=== PATIENT | male | born 1980 | race Caucasian/White ===

== ENCOUNTER 2017-02-04 04:30 | Emergency (ER) | payer SELFPAY ==
[2016-08-08 13:39] VITALS: BMI 15.3
[~2017-02-04 04:30] MED LIST: CARAFATE1 G PO; CARAFATE1 G/10 ML PO; COMBIVENT RESPIM4 GM INH; FLAGYL500 MG PO; LEVAQUIN500 MG PO; NEXIUM40 MG PO; NICODERM C1 PATCH .2 TRANSDERM; NODOLOR CAPSUL1 EACH; NORCO 7.5/325 T1 TA1 PO; PROTONIX20 MG PO; PROTONIX40 MG PO
== END 2017-02-04 06:33 | disposition home or self-care (01) ==
LOC: D.ER 04:30
DX: S00.83XA Contusion of other part of head, initial encounter (principal); Y04.2XXA Assault by strike against or bumped into by another person, initial encounter; Y93.89 Activity, other specified; Y92.89 Other specified places as the place of occurrence of the external cause; H11.32 Conjunctival hemorrhage, left eye; M54.9 Dorsalgia, unspecified; F17.200 Nicotine dependence, unspecified, uncomplicated

== ENCOUNTER 2018-10-26 10:09 | Inpatient (IN) | payer MEDICAID ==
[~2018-10-26] VITALS: Ht 177.8 cm; Wt 56.7 kg
[2018-10-26 11:15] LABS: BASOPHILS 0.2 % (0-2); EOSINOPHILS 0.9 % (0-7); HEMATOCRIT 46.3 % (42.0-54.0); HEMOGLOBIN 16.3 g/dL (13.5-17.5); IMMATURE GRANULOCYTES 0.2 % (0-5); MCH 31.6 pg (26.0-34.0); MCHC 35.2 g/dL (31.0-37.0); MCV 89.7 fL (80.0-100.0); MEAN PLATELET VOLUME 9.8 fL (7.4-10.4); MONOCYTES 7.3 % (2-11); NEUTROPHILS 78.4 % (40-80); RBC 5.16 10x6/uL (4.20-6.10); RDW 13.1 % (11.5-14.5); WBC 16.1 10x3/uL (4.8-10.8)
[2018-10-26 11:16] LABS: PLATELET COUNT 196 10x3/uL (130-400)
[2018-10-26 11:22] LABS: APTT 29.7 SECONDS (22.8-39.4); INR 1.08 (0.85-1.17); PROTIME 13.5 SECONDS (11.6-15.0)
[2018-10-26 11:30] LABS: ALKALINE PHOSPHATASE 72 U/L (46-116); ALT (SGPT) 29 U/L (10-68); BILIRUBIN - TOTAL 0.83 mg/dL (0.2-1.3); CALC OSMOLALITY 282 mosm/kg (275-300); CALCIUM 9.1 mg/dL (8.5-10.1); CARBON DIOXIDE 27.9 mmol/L (21.0-32.0); CHLORIDE - SERUM 104 mmol/L (98-107); CREATININE - SERUM 0.9 mg/dL (0.6-1.3); GLUCOSE 114 mg/dL (74-106); PROTEIN - SERUM 7.3 g/dL (6.4-8.2); SODIUM 140 mmol/L (136-145); UREA NITROGEN 20 mg/dL (7-18); eGFR NON AFRICAN AMERICAN > 90 mL/min (90-120)
[2018-10-26 11:43] LABS: CKMB 0.1 U/L (0.0-3.6); CREATINE KINASE 44 UL (21-232); MAGNESIUM - SERUM 2.4 mg/dL (1.8-2.4)
[2018-10-26 11:44] LABS: TROPONIN-I < 0.017 ng/mL (0.000-0.060)
[2018-10-26] MEDS ORDERED: ACETAMINOPHEN500 M1 PO (12:20)
[2018-10-26] MEDS ORDERED: CYCLOBENZAPRINE10 MG PO (12:20)
[2018-10-26] MEDS ORDERED: IBUPROFEN800 MG PO (12:20)
[2018-10-26 12:41] VITALS: BP 108/68
[2018-10-26 12:54] LABS: AMYLASE - SERUM 53 U/L (25-115); LIPASE 433 U/L (73-393)
--- NOTE | 2018-10-26 16:50 | NUR ---
PT TRANSPORTED TO ROOM VIA WHEELCHAIR FROM ER. IV INFUSING TO LEFT AC. PT AMBULATED FROM WHEELCHAIR TO BED. PT EDUCATED ON FALL PREVENTION AND ORDER FOR BED REST. PT VERBALIZED UNDERSTANDING. PT DENIES PRESENCE OF PAIN AND OR N/V AT THIS TIME. BED IS IN THE LOWEST POSITION. CALL LIGHT AND BEDSIDE TABLE ARE WITHIN REACH. WILL CONT TO MONITOR.
[2018-10-26 17:34] VITALS: BP 97/61; BMI 17.9
[2018-10-26 18:20] VITALS: BP 97/61
--- NOTE | 2018-10-26 18:43 | NUR ---
PT EDUCATED ON IMPORTANCE OF SCDS AND PURPOSE OF SCDS. PT REFUSES SCDS AT THIS TIME.
--- NOTE | 2018-10-26 19:15 | NUR ---
RECEIVED CARE FROM DAY NURSE. LYING IN BED WATCHING TV. REPORTS NO NEEDS AT THIS TIME. CALL LIGHT AT SIDE. IV INFUSING PER ORDER TO LEFT AC.
[2018-10-26 19:50] VITALS: BP 98/62
--- NOTE | 2018-10-26 23:50 | NUR ---
PT REPORTS HE TOLD SOMEONE TWO HOURS PRIOR THAT HE HAD AN EPISODE OF PAIN IN HIS CHEST THAT WENT UP HIS RIGHT NECK AND UP TO THE RIGHT SIDE OF HIS HEAD. REPORTS HIS HEAD STILL HURTS. CALLED TELEMETRY TO SEE IF THEY NOW HAVE BOX'S, NONE AVAILABLE AT THIS TIME. EKG DONE AT THIS TIME. MORPHINE GIVEN PER ORDER. VITALS REMAIN UNCHANGED. WILL CONTINUE TO MONITOR. CALL LIGHT AT SIDE. INSTRUCTED PATIENT TO CALL BACK IF A NURSE DOESN'T COME IN THE ROOM IF HE ASKED FOR ONE, NOT TO WAIT 2 HOURS.
--- NOTE | 2018-10-27 02:31 | NUR ---
I AGREE WITH ARBORICULTURIST'S ASSESSMENT.
[2018-10-27 04:00] VITALS: BP 90/52
[2018-10-27 06:03] LABS: BASOPHILS 0 % (0-2); EOSINOPHILS 0 % (0-7); HEMATOCRIT 39.1 % (42.0-54.0); HEMOGLOBIN 13.4 g/dL (13.5-17.5); IMMATURE GRANULOCYTES 0.3 % (0-5); LYMPHOCYTES 16.1 % (15-50); MCH 31.2 pg (26.0-34.0); MCHC 34.3 g/dL (31.0-37.0); MCV 91.1 fL (80.0-100.0); MEAN PLATELET VOLUME 10.4 fL (7.4-10.4); MONOCYTES 5.9 % (2-11); NEUTROPHILS 77.7 % (40-80); PLATELET COUNT 194 10x3/uL (130-400); RBC 4.29 10x6/uL (4.20-6.10); RDW 13.1 % (11.5-14.5)
[2018-10-27 06:13] LABS: WBC 10.2 10x3/uL (4.8-10.8)
[2018-10-27 06:25] LABS: ALKALINE PHOSPHATASE 57 U/L (46-116); ALT (SGPT) 22 U/L (10-68); BILIRUBIN - TOTAL 0.59 mg/dL (0.2-1.3); CALCIUM 8.1 mg/dL (8.5-10.1); CARBON DIOXIDE 24.2 mmol/L (21.0-32.0); CHLORIDE - SERUM 106 mmol/L (98-107); CREATININE - SERUM 0.9 mg/dL (0.6-1.3); GLUCOSE 103 mg/dL (74-106); LIPASE 97 U/L (73-393); MAGNESIUM - SERUM 2.1 mg/dL (1.8-2.4); POTASSIUM - SERUM 4.5 mmol/L (3.5-5.1); PROTEIN - SERUM 5.6 g/dL (6.4-8.2); SODIUM 139 mmol/L (136-145); eGFR NON AFRICAN AMERICAN > 90 mL/min (90-120)
[2018-10-27 06:27] LABS: ALBUMIN 2.9 g/dL (3.4-5.0); AMYLASE - SERUM 23 U/L (25-115); CALC OSMOLALITY 282 mosm/kg (275-300); UREA NITROGEN 27 mg/dL (7-18)
--- NOTE | 2018-10-27 08:10 | NUR ---
PT C/O PAIN IN ABDOMIN RADIATING TO BACK STATES SAME PAIN WHAT HE CAME IN WITH YESTRDAY, STARTS OUT BURNING FEELING IN STOMACH THAN TURNED INTO PAIN. ADMINISTER PRN PAIN MEDICATION WELL NAUSEA MEDICATION
[2018-10-27 09:41] VITALS: BP 96/53
--- NOTE | 2018-10-27 11:00 | NUR ---
RN NOTE: PT LYING IN BED, STATED PAIN IS STILL IN ABDOMEN BUT THINKS IT COULD BE HUNGRY PAINS, PT NURSE HAS SPOKEN WOTH DOCTOR, NO NEEDS VOICED AT THIS TIME, BED IN LOW POSITION, CL IN REACH AND ALL QUESTIONS ANSWERED
--- NOTE | 2018-10-27 11:08 | NUR ---
PT STATED STIL HAS SOME PAIN IN ABDOMEN BUT FEELS IF IT COULD BE HUNER PAINS AND IF HE EATS HE WOULD FEEL BETTER, ADVISED PT DR CRUZ NEEDS TO SEE HIM BEFORE ADVANCING DIET
--- NOTE | 2018-10-27 11:48 | NUR ---
PT STATES URINE IS VERY DARK AND LOOKS LIKE COULD BE BLOOD, GAVE PT URINAL AND PLACED ORDER FOR UA AND CULTURE
[2018-10-27 14:08] VITALS: BP 99/54
[2018-10-27 16:14] LABS: APPEARANCE CLEAR (CLEAR); BILIRUBIN NEGATIVE (NEGATIVE); COLOR YELLOW (YELLOW); GLUCOSE NEGATIVE (NEGATIVE); KETONE SMALL mg/dL (NEGATIVE); NITRITE NEGATIVE (NEGATIVE); PROTEIN NEGATIVE (NEGATIVE); SPECIFIC GRAVITY 1.015 (1.005-1.020); UROBILINOGEN NORMAL (NORMAL)
[2018-10-27 18:25] VITALS: BP 96/52
--- NOTE | 2018-10-27 19:15 | NUR ---
RECEIVED CARE FROM DAY NURSE. LYING IN BED WATCHING TV. REPORTS NO NEEDS AT THIS TIME. CALL LIGHT AT SIDE. IV INFUSING PER ORDER TO PATENT LEFT AC.
[2018-10-27 20:00] VITALS: BP 88/42
[2018-10-27 22:06] VITALS: BP 102/68
[2018-10-28] VITALS: BP 82/44
[2018-10-28 04:00] VITALS: BP 96/52
[2018-10-28 05:06] LABS: BASOPHILS 0.1 % (0-2); EOSINOPHILS 1.8 % (0-7); HEMATOCRIT 38.2 % (42.0-54.0); HEMOGLOBIN 13.1 g/dL (13.5-17.5); IMMATURE GRANULOCYTES 0.1 % (0-5); LYMPHOCYTES 36.8 % (15-50); MCH 31.6 pg (26.0-34.0); MCHC 34.3 g/dL (31.0-37.0); MEAN PLATELET VOLUME 9.8 fL (7.4-10.4); MONOCYTES 6.6 % (2-11); NEUTROPHILS 54.6 % (40-80); PLATELET COUNT 168 10x3/uL (130-400); RBC 4.15 10x6/uL (4.20-6.10); RDW 13.3 % (11.5-14.5); WBC 10.3 10x3/uL (4.8-10.8)
[2018-10-28 05:28] LABS: ALBUMIN 2.5 g/dL (3.4-5.0); ALKALINE PHOSPHATASE 46 U/L (46-116); ALT (SGPT) 18 U/L (10-68); AMYLASE - SERUM 24 U/L (25-115); BILIRUBIN - TOTAL 0.28 mg/dL (0.2-1.3); CALCIUM 7.9 mg/dL (8.5-10.1); CARBON DIOXIDE 26.1 mmol/L (21.0-32.0); CHLORIDE - SERUM 111 mmol/L (98-107); CREATININE - SERUM 0.9 mg/dL (0.6-1.3); GLUCOSE 92 mg/dL (74-106); LIPASE 126 U/L (73-393); POTASSIUM - SERUM 4.2 mmol/L (3.5-5.1); PROTEIN - SERUM 4.9 g/dL (6.4-8.2); SODIUM 144 mmol/L (136-145); eGFR NON AFRICAN AMERICAN > 90 mL/min (90-120)
[2018-10-28 05:29] LABS: CALC OSMOLALITY 287 mosm/kg (275-300); UREA NITROGEN 15 mg/dL (7-18)
[2018-10-28 08:23] VITALS: BP 105/68
[2018-10-28 12:16] VITALS: BP 101/59
[2018-10-28 12:27] VITALS: Ht 177.8 cm; Wt 56.7 kg
--- NOTE | 2018-10-28 13:46 | NUR ---
PATIENT IN BED WITH EYES CLOSED RESTING QUIETLY. IV INTACT. CALL LIGHT WITHIN REACH.
[2018-10-28 15:08] VITALS: BP 115/68
--- NOTE | 2018-10-28 20:00 | NUR ---
ASSESSMENT PER FLOWSHEET. IV PATENT LEFT AC OF LR AT 100CC'S/HR SITE CLEAR. RESTING QUIETLY SR UP X2 CALL LIGHT WITHIN REACH. DENIES NEEDS.
[2018-10-28 20:31] VITALS: BP 109/68
--- NOTE | 2018-10-28 22:00 | NUR ---
RESTING QUIETLY RESPIRATIONS WITH EASE AND UNLABORED. DENIES NEEDS. VOIDS WELL IN URINAL.
--- NOTE | 2018-10-29 | NUR ---
EYES CLOSED RESPIRATIONS WITH EASE AND UNLABORED.
[2018-10-29 00:47] VITALS: BP 94/62
--- NOTE | 2018-10-29 03:30 | NUR ---
EYES CLOSED RESPIRATIONS WITH EASE AND UNLABORED.
[2018-10-29 04:54] VITALS: BP 112/74
[2018-10-29 05:19] LABS: BASOPHILS 0.2 % (0-2); EOSINOPHILS 4.6 % (0-7); HEMATOCRIT 38.1 % (42.0-54.0); IMMATURE GRANULOCYTES 0.2 % (0-5); LYMPHOCYTES 32.2 % (15-50); MCH 31.4 pg (26.0-34.0); MCHC 34.1 g/dL (31.0-37.0); MEAN PLATELET VOLUME 9.8 fL (7.4-10.4); MONOCYTES 6.7 % (2-11); NEUTROPHILS 56.1 % (40-80); PLATELET COUNT 166 10x3/uL (130-400); RBC 4.14 10x6/uL (4.20-6.10); RDW 13.2 % (11.5-14.5); WBC 8.5 10x3/uL (4.8-10.8)
[2018-10-29 05:46] LABS: ALBUMIN 2.3 g/dL (3.4-5.0); ALKALINE PHOSPHATASE 48 U/L (46-116); AMYLASE - SERUM 25 U/L (25-115); BILIRUBIN - TOTAL 0.19 mg/dL (0.2-1.3); CALCIUM 7.6 mg/dL (8.5-10.1); CARBON DIOXIDE 29.2 mmol/L (21.0-32.0); CHLORIDE - SERUM 110 mmol/L (98-107); CREATININE - SERUM 0.9 mg/dL (0.6-1.3); GLUCOSE 98 mg/dL (74-106); LIPASE 147 U/L (73-393); MAGNESIUM - SERUM 1.6 mg/dL (1.8-2.4); POTASSIUM - SERUM 4.3 mmol/L (3.5-5.1); PROTEIN - SERUM 4.8 g/dL (6.4-8.2); SODIUM 145 mmol/L (136-145); eGFR NON AFRICAN AMERICAN > 90 mL/min (90-120)
[2018-10-29 05:59] LABS: CALC OSMOLALITY 286 mosm/kg (275-300); UREA NITROGEN 8 mg/dL (7-18)
[2018-10-29 06:00] LABS: ALT (SGPT) 29 U/L (10-68)
[2018-10-29 08:45] VITALS: BP 109/71
[2018-10-29] MEDS ORDERED: PROTONIX40 MG PO (10:37)
--- NOTE | 2018-10-29 11:14 | MORECARE ---
CASE MANAGEMENT DISCHARGE SUMMARY PATIENT: LETICIA JAUREGUI UNIT: [id number] ADM DATE: 10/26/18 AGE: 38 : 80 SEX: M ROOM/BED: D.2222 AUTHOR: HUDSON,DOC PHYSICIAN: REFERRING PHYSICIAN: JENELLE OLIVA MD DATE OF SERVICE: 10/29/18 Discharge Plan Patient Name: LETICIA JAUREGUI Facility: [facility]:[place] : 1980 Planned Disposition: Home Anticipated Discharge Date: 10/29/18 Discharge Date: Expected LOS: 3 Initial Reviewer: [email or web address] Initial Review Date: 10/29/2018 Generated: 10/29/18 12:14 pm Comments DCP- Discharge Planning Updated by [email or web address]: May Harrison on 10/29/18 10:[address] Patient Name: LETICIA JAUREGUI Admission Status: ER Accout number: [id number] Admission Date: 10-26-2018 : 1980 Admission Diagnosis:CHEST PAIN, UNSPECIFIED Attending: JENELLE MCCALL Current LOS: 3 Anticipated DC Date: 10-29-2018 Planned Disposition: Home Primary Insurance: MEDICAID [place] PENDING Discharge Planning Comments: CM met with patient to complete initial dc planning assessment. CM educated patient on the CM role and verbal consent given by patient to complete assessment. Patient lives alone. States he is independent with all ADL's and AIDL's. At discharge patient plans to return and feels this is a safe discharge. States his friend, Akin will take him home. CM discussed availability of home health and medical equipment. Patient denied known discharge needs at this time. No needs identified. CM will continue to follow and will assist as needed with dc plans/needs. Vertical Boring Mill Operator: May Harrison DCPIA - Discharge Planning Initial Assessment Updated by [email or web address]: May Harrison on 10/29/18 11:09 am * Is the patient Alert and Oriented? Yes * How many steps to enter\exit or inside your home? 3/0 * PCP None * Pharmacy [facility] on [address] * Preadmission Environment Home Alone * ADLs Independent * Equipment None * List name and contact numbers for known caregivers / representatives who currently or will assist patient after discharge: Akin nicholson - [phone] * Verbal permission to speak to the caregivers and representatives has been obtained from the patient. Yes * Community resources currently utilized None * Additional services required to return to the preadmission environment? No * Can the patient safely return to the preadmission environment? Yes * Has this patient been hospitalized within the prior 30 days at any hospital? No Patient Name: LETICIA JAUREGUI Page 37153 at 1114 All edits/amendments must be made on the electronic document DICTATION DATE: 10/29/18 111 INDUCTION MACHINE OPERATOR: MALLORIE 10/29/18 1114 RPT#: [id number] DC DATE: STATUS: ADM IN [facility] [address] [place] [address] END OF REPORT
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
--- NOTE | 2018-10-29 13:42 | NUR ---
SCHOOL BUS MECHANIC NOTES - TOLERATING DIET. EXPECTED DISCHARGE TODAY. PAIN UNDER CONTROL. BED LOW, CALL LIGHT IN REACH. NO OTHER NEEDS
--- NOTE | 2018-10-30 16:51 | MORECARE ---
CASE MANAGEMENT DISCHARGE SUMMARY PATIENT: LETICIA JAUREGUI UNIT: [id number] ADM DATE: 10/26/18 AGE: 38 : 80 SEX: M ROOM/BED: D.2222 AUTHOR: HUDSON,DOC PHYSICIAN: REFERRING PHYSICIAN: JENELLE OLIVA MD DATE OF SERVICE: 10/30/18 Discharge Plan Patient Name: LETICIA JAUREGUI Facility: [facility]:[place] : 1980 Planned Disposition: Home Anticipated Discharge Date: 10/29/18 Discharge Date: 10/29/2018 Expected LOS: 3 Initial Reviewer: [email or web address] Initial Review Date: 10/29/2018 Generated: 10/30/18 5:51 pm Comments DCP- Discharge Planning Updated by [email or web address]: May Harrison on 10/29/18 10:[address] Patient Name: LETICIA JAUREGUI Admission Status: ER Accout number: [id number] Admission Date: 10-26-2018 : 1980 Admission Diagnosis:CHEST PAIN, UNSPECIFIED Attending: JENELLE MCCALL Current LOS: 3 Anticipated DC Date: 10-29-2018 Planned Disposition: Home Primary Insurance: MEDICAID [place] PENDING Discharge Planning Comments: CM met with patient to complete initial dc planning assessment. CM educated patient on the CM role and verbal consent given by patient to complete assessment. Patient lives alone. States he is independent with all ADL's and AIDL's. At discharge patient plans to return and feels this is a safe discharge. States his friend, Akin will take him home. CM discussed availability of home health and medical equipment. Patient denied known discharge needs at this time. No needs identified. CM will continue to follow and will assist as needed with dc plans/needs. Chemical Laboratory Chief: May Harrison DCPIA - Discharge Planning Initial Assessment Updated by [email or web address]: May Harrison on 10/29/18 11:09 am * Is the patient Alert and Oriented? Yes * How many steps to enter\exit or inside your home? 3/0 * PCP None * Pharmacy [facility] on [address] * Preadmission Environment Home Alone * ADLs Independent * Equipment None * List name and contact numbers for known caregivers / representatives who currently or will assist patient after discharge: Akin nicholson - [phone] * Verbal permission to speak to the caregivers and representatives has been obtained from the patient. Yes * Community resources currently utilized None * Additional services required to return to the preadmission environment? No * Can the patient safely return to the preadmission environment? Yes * Has this patient been hospitalized within the prior 30 days at any hospital? No Last DP export: 10/29/18 10:14 a Patient Name: LETICIA JAUREGUI Page 53777 at 1651 All edits/amendments must be made on the electronic document DICTATION DATE: 10/30/181650 LOAN CONSULTANT: MALLORIE 10/30/181650 RPT#: [id number] DC DATE:10/29/18 STATUS: DIS IN [facility] [address] [place] [address] END OF REPORT
[2018-11-01 11:21] LABS: IGG SUBCLASS 1 267 mg/dL (248-810); IGG SUBCLASS 2 233 mg/dL (130-555); IGG SUBCLASS 3 23 mg/dL (15-102); IGG SUBCLASS 4 22 mg/dL (2-96)
== END 2018-10-29 16:04 | disposition home or self-care (01) | DRG 438 ==
LOC: D.ER 10:09 → D.MS 15:57 → D.EDHOLD 15:57 → D.MS 16:03
PROVIDERS: Family Medicine; Internal Medicine Gastroenterology; ADMIT Family Medicine Adult Medicine
DX: K85.90 Acute pancreatitis without necrosis or infection, unspecified (principal); E43 Unspecified severe protein-calorie malnutrition; F17.213 Nicotine dependence, cigarettes, with withdrawal; K86.1 Other chronic pancreatitis

== ENCOUNTER 2018-11-09 09:57 | Emergency (ER) | payer MEDICAID ==
[~2018-11-09] VITALS: Ht 177.8 cm; Wt 56.8 kg
[~2018-11-09 09:57] MED LIST changes: +ACETAMINOPHEN500 M1 PO; +CYCLOBENZAPRINE10 MG PO; +IBUPROFEN800 MG PO
[2018-11-09 10:01] VITALS: Ht 177.8 cm; Wt 56.8 kg
[2018-11-09 10:27] LABS: BASOPHILS 0.1 % (0-2); EOSINOPHILS 0.9 % (0-7); HEMATOCRIT 48.5 % (42.0-54.0); HEMOGLOBIN 17.3 g/dL (13.5-17.5); IMMATURE GRANULOCYTES 0.3 % (0-5); LYMPHOCYTES 10.4 % (15-50); MCH 31.8 pg (26.0-34.0); MCHC 35.7 g/dL (31.0-37.0); MCV 89.2 fL (80.0-100.0); MEAN PLATELET VOLUME 9.8 fL (7.4-10.4); MONOCYTES 7.8 % (2-11); NEUTROPHILS 80.5 % (40-80); PLATELET COUNT 260 10x3/uL (130-400); RBC 5.44 10x6/uL (4.20-6.10); RDW 13.2 % (11.5-14.5); WBC 17.4 10x3/uL (4.8-10.8)
[2018-11-09 10:29] LABS: APPEARANCE CLEAR (CLEAR); BILIRUBIN NEGATIVE (NEGATIVE); COLOR DY (YELLOW); GLUCOSE NEGATIVE (NEGATIVE); KETONE LARGE mg/dL (NEGATIVE); NITRITE NEGATIVE (NEGATIVE); PROTEIN NEGATIVE (NEGATIVE); SPECIFIC GRAVITY 1.025 (1.005-1.020); UROBILINOGEN NORMAL (NORMAL)
[2018-11-09 10:30] LABS: BACTERIA MODERATE /hpf (NONE SEEN); EPITHELIAL CELLS OCC /hpf (0-5)
[2018-11-09 10:31] LABS: MUCUS <1+ /lpf (NONE SEEN)
[2018-11-09 10:48] LABS: ALBUMIN 4.5 g/dL (3.4-5.0); ALKALINE PHOSPHATASE 78 U/L (46-116); ALT (SGPT) 58 U/L (10-68); BILIRUBIN - TOTAL 0.69 mg/dL (0.2-1.3); CALC OSMOLALITY 284 mosm/kg (275-300); CALCIUM 9.2 mg/dL (8.5-10.1); CARBON DIOXIDE 24.2 mmol/L (21.0-32.0); CHLORIDE - SERUM 101 mmol/L (98-107); CREATININE - SERUM 1.1 mg/dL (0.6-1.3); POTASSIUM - SERUM 3.8 mmol/L (3.5-5.1); SODIUM 139 mmol/L (136-145); UREA NITROGEN 23 mg/dL (7-18); eGFR NON AFRICAN AMERICAN 79 mL/min (90-120)
[2018-11-09 10:49] LABS: GLUCOSE 156 mg/dL (74-106)
[2018-11-09 10:51] LABS: AMYLASE - SERUM 44 U/L (25-115); LIPASE 268 U/L (73-393); TROPONIN-I < 0.017 ng/mL (0.000-0.060)
[2018-11-09] MEDS ORDERED: BENTYL 20 MG TA20 MG PO (12:02)
[2018-11-09] MEDS ORDERED: ZOFRAN ODT4 MG/UDTAB PO (12:02)
[2018-11-09] MEDS ORDERED: PROTONIX FOR OR40 MG PT (12:04)
[2018-11-09 12:51] VITALS: BP 106/68
== END 2018-11-09 12:51 | disposition home or self-care (01) ==
LOC: D.ER 09:57
PROVIDERS: Family Medicine
DX: R10.13 Epigastric pain (principal); Z87.19 Personal history of other diseases of the digestive system; R11.2 Nausea with vomiting, unspecified; A08.4 Viral intestinal infection, unspecified

== ENCOUNTER 2019-04-20 16:38 | Inpatient (IN) | payer OTHER ==
[~2019-04-20] VITALS: Ht 177.8 cm; Wt 52.2 kg
[~2019-04-20 16:38] MED LIST changes: +BENTYL 20 MG TA20 MG PO; +PROTONIX FOR OR40 MG PT; +ZOFRAN ODT4 MG/UDTAB PO
[2019-04-20 17:13] LABS: BASOPHILS 0.1 % (0-2); EOSINOPHILS 0 % (0-7); HEMATOCRIT 51.2 % (42.0-54.0); HEMOGLOBIN 18.8 g/dL (13.5-17.5); IMMATURE GRANULOCYTES 0.3 % (0-5); LYMPHOCYTES 6.4 % (15-50); MCH 32.6 pg (26.0-34.0); MCHC 36.7 g/dL (31.0-37.0); MCV 88.7 fL (80.0-100.0); MEAN PLATELET VOLUME 10.3 fL (7.4-10.4); MONOCYTES 13.9 % (2-11); NEUTROPHILS 79.3 % (40-80); RBC 5.77 10x6/uL (4.20-6.10); RDW 13.1 % (11.5-14.5); WBC 17.7 10x3/uL (4.8-10.8)
[2019-04-20 17:14] LABS: PLATELET COUNT 169 10x3/uL (130-400)
[2019-04-20 17:15] LABS: APPEARANCE CLEAR (CLEAR); BILIRUBIN NEGATIVE (NEGATIVE); COLOR YELLOW (YELLOW); GLUCOSE 50 mg/dL (NEGATIVE); KETONE SMALL mg/dL (NEGATIVE); NITRITE NEGATIVE (NEGATIVE); PROTEIN TRACE mg/dL (NEGATIVE); UROBILINOGEN NORMAL (NORMAL)
[2019-04-20 17:18] LABS: BACTERIA NONE SEEN /hpf (NONE SEEN); EPITHELIAL CELLS 0-5 /hpf (0-5); HYALINE CAST 0-5 /lpf (NONE SEEN); WHITE CELLS - URINE 0-5 /hpf (0-5)
[2019-04-20 17:39] LABS: ALKALINE PHOSPHATASE 81 U/L (46-116); ALT (SGPT) 90 U/L (10-68); BILIRUBIN - TOTAL 1.26 mg/dL (0.2-1.3); CALC OSMOLALITY 286 mosm/kg (275-300); CALCIUM 10.4 mg/dL (8.5-10.1); CARBON DIOXIDE 30.5 mmol/L (21.0-32.0); CHLORIDE - SERUM 94 mmol/L (98-107); CREATININE - SERUM 2.1 mg/dL (0.6-1.3); POTASSIUM - SERUM 3.2 mmol/L (3.5-5.1); PROTEIN - SERUM 8.8 g/dL (6.4-8.2); SODIUM 139 mmol/L (136-145); UREA NITROGEN 16 mg/dL (7-18); eGFR NON AFRICAN AMERICAN 38 mL/min (90-120)
[2019-04-20 17:41] LABS: GLUCOSE 238 mg/dL (74-106)
[2019-04-20 17:43] LABS: AMYLASE - SERUM 76 U/L (25-115); LIPASE 71 U/L (73-393)
[2019-04-20 17:47] LABS: TROPONIN-I < 0.017 ng/mL (0.000-0.060)
[2019-04-20 19:30] VITALS: BP 132/89
[2019-04-20 21:34] VITALS: BP 130/80
[2019-04-20 23:23] VITALS: BP 110/77; BMI 16.5
[2019-04-21 04:00] VITALS: BP 108/66
[2019-04-21 08:27] LABS: BASOPHILS 0.1 % (0-2); EOSINOPHILS 0.4 % (0-7); IMMATURE GRANULOCYTES 0.2 % (0-5); LYMPHOCYTES 17.6 % (15-50); MCH 31.6 pg (26.0-34.0); MCHC 34.9 g/dL (31.0-37.0); MCV 90.3 fL (80.0-100.0); MEAN PLATELET VOLUME 9.9 fL (7.4-10.4); MONOCYTES 10.4 % (2-11); NEUTROPHILS 71.3 % (40-80); RDW 13.4 % (11.5-14.5)
[2019-04-21 08:30] LABS: RBC 4.12 10x6/uL (4.20-6.10)
[2019-04-21 08:31] LABS: HEMATOCRIT 37.2 % (42.0-54.0); PLATELET COUNT 105 10x3/uL (130-400); WBC 10.9 10x3/uL (4.8-10.8)
[2019-04-21 08:59] LABS: INR 1.14 (0.85-1.17); PROTIME 14.1 SECONDS (11.6-15.0)
[2019-04-21 09:20] LABS: ANION GAP 9.2 mmol/L (8-16); CALCIUM 7.8 mg/dL (8.5-10.1); CARBON DIOXIDE 29.2 mmol/L (21.0-32.0); POTASSIUM - SERUM 3.4 mmol/L (3.5-5.1)
[2019-04-21 09:23] LABS: CREATININE - SERUM 1.2 mg/dL (0.6-1.3)
[2019-04-21 09:33] VITALS: BP 106/64; BP 89/56
[2019-04-21 12:16] VITALS: BP 109/65
[2019-04-21 12:49] VITALS: Ht 177.8 cm; Wt 52.2 kg
[2019-04-21 16:20] VITALS: BP 109/65
[2019-04-21 20:00] VITALS: BP 106/75
[2019-04-21 20:10] VITALS: BP 129/81
[2019-04-22] VITALS: BP 105/66
[2019-04-22 04:00] VITALS: BP 96/59
[2019-04-22 07:02] LABS: BASOPHILS 0.1 % (0-2); EOSINOPHILS 0 % (0-7); HEMATOCRIT 37.2 % (42.0-54.0); HEMOGLOBIN 12.7 g/dL (13.5-17.5); IMMATURE GRANULOCYTES 0.2 % (0-5); LYMPHOCYTES 9.4 % (15-50); MCH 31.4 pg (26.0-34.0); MCHC 34.1 g/dL (31.0-37.0); MCV 92.1 fL (80.0-100.0); MEAN PLATELET VOLUME 9.8 fL (7.4-10.4); MONOCYTES 10.3 % (2-11); PLATELET COUNT 98 10x3/uL (130-400); RBC 4.04 10x6/uL (4.20-6.10); RDW 13.2 % (11.5-14.5); WBC 13.3 10x3/uL (4.8-10.8)
[2019-04-22 07:16] LABS: ALKALINE PHOSPHATASE 42 U/L (46-116); ALT (SGPT) 96 U/L (10-68); BILIRUBIN - DIRECT 0.32 mg/dL (0.00-0.30); BILIRUBIN - INDIRECT 0.85 mg/dL (0.00-1.00); BILIRUBIN - TOTAL 1.17 mg/dL (0.2-1.3); CALC OSMOLALITY 281 mosm/kg (275-300); CARBON DIOXIDE 26.9 mmol/L (21.0-32.0); CHLORIDE - SERUM 107 mmol/L (98-107); GLUCOSE 95 mg/dL (74-106); LIPASE 55 U/L (73-393); SODIUM 141 mmol/L (136-145); UREA NITROGEN 16 mg/dL (7-18); eGFR NON AFRICAN AMERICAN 89 mL/min (90-120)
[2019-04-22 07:19] LABS: ALBUMIN 2.7 g/dL (3.4-5.0); AMYLASE - SERUM 23 U/L (25-115); POTASSIUM - SERUM 4.6 mmol/L (3.5-5.1)
[2019-04-22 09:31] LABS: PLATELET ESTIMATE DECREASED
[2019-04-22 09:33] LABS: ANISOCYTOSIS OCC; ROULEAUX OCC
--- NOTE | 2019-04-22 12:16 | MORECARE ---
CASE MANAGEMENT DISCHARGE SUMMARY PATIENT: LETICIA JAUREGUI UNIT: [id number] ADM DATE: 04/20/19 AGE: 38 : 80 SEX: M ROOM/BED: D.1211 AUTHOR: HUDSONDOC PHYSICIAN: REFERRING PHYSICIAN: ERICA GARCIA MD DATE OF SERVICE: 04/22/19 Discharge Plan Patient Name: LETICIA JAUREGUI Facility: [facility]:[place] : 1980 Planned Disposition: Home Anticipated Discharge Date: 04/22/19 Discharge Date: Expected LOS: 2 Initial Reviewer: [email or web address] Initial Review Date: 04/20/2019 Generated: 04/22/19 1:16 pm Comments DCP- Discharge Planning Updated by [email or web address]: Masha Brito on 04/22/19 11:[address] Patient Name: LETICIA JAUREGUI Admission Status: ER Accout number: [id number] Admission Date: 04-20-2019 : 1980 Admission Diagnosis: Attending: ERICA GARCIA Current LOS: 2 Anticipated DC Date: 04-22-2019 Planned Disposition: Home Primary Insurance: [employer] MANAGED MEDICAID Discharge Planning Comments: DC PLAN: Return home with parents staying w/ him. DC NEEDS: Denied dc needs. CM met with patient to complete initial dc planning assessment. CM educated patient on the CM role and verbal consent given by patient to complete assessment. CM verified patient's address, phone number, and emergency contact phone numbers. Patient lives at home alone but reports his parents are here visiting now and will stay with him at dc. At discharge patient plans to return home and feels this is a safe discharge. CM discussed availability of home health, rehab services, and medical equipment. Patient denied known discharge needs at this time. Patient reports his parents will transport him home at time of discharge. CM will continue to follow and will assist as needed with dc plans/needs. Tare Man: Masha Brito RN, [facility] DCPIA - Discharge Planning Initial Assessment Updated by [email or web address]: Masha Brito on 04/22/19 12:09 pm * Is the patient Alert and Oriented? Yes * How many steps to enter\exit or inside your home? none * PCP Dr. Garcia * Pharmacy [facility] on [address] * Preadmission Environment Home with Family * ADLs Independent * Equipment None * List name and contact numbers for known caregivers / representatives who currently or will assist patient after discharge: Nai Jauregui [facility] - [phone] * Verbal permission to speak to the caregivers and representatives has been obtained from the patient. Yes * Community resources currently utilized None * Additional services required to return to the preadmission environment? No * Can the patient safely return to the preadmission environment? Yes * Has this patient been hospitalized within the prior 30 days at any hospital? No Patient Name: LETICIA JAUREGUI Page 39298 at 1216 All edits/amendments must be made on the electronic document DICTATION DATE: 04/22/191214 SHIP RUNNER: MALLORIE 04/22/191214 RPT#: [id number] DC DATE: STATUS: ADM IN [facility] [address] [place] [address] END OF REPORT
[2019-04-22] MEDS ORDERED: HYDROCODON-ACE1 EAC7 PO (13:32)
[2019-04-22 20:19] VITALS: BP 110/79
[2019-04-23 00:10] VITALS: BP 104/63
[2019-04-23 03:46] VITALS: BP 98/61
[2019-04-23 06:08] LABS: BASOPHILS 0.2 % (0-2); EOSINOPHILS 1.9 % (0-7); HEMATOCRIT 39.1 % (42.0-54.0); HEMOGLOBIN 13.5 g/dL (13.5-17.5); IMMATURE GRANULOCYTES 0.3 % (0-5); MCH 31.9 pg (26.0-34.0); MCHC 34.5 g/dL (31.0-37.0); MCV 92.4 fL (80.0-100.0); MEAN PLATELET VOLUME 10.9 fL (7.4-10.4); MONOCYTES 10.2 % (2-11); NEUTROPHILS 60.4 % (40-80); PLATELET COUNT 115 10x3/uL (130-400); RBC 4.23 10x6/uL (4.20-6.10); RDW 13.2 % (11.5-14.5); WBC 10.1 10x3/uL (4.8-10.8)
[2019-04-23 06:36] LABS: ALBUMIN 2.6 g/dL (3.4-5.0); BILIRUBIN - DIRECT 0.34 mg/dL (0.00-0.30); BILIRUBIN - INDIRECT 0.75 mg/dL (0.00-1.00); BILIRUBIN - TOTAL 1.09 mg/dL (0.2-1.3); CALCIUM 8.4 mg/dL (8.5-10.1); CARBON DIOXIDE 28.8 mmol/L (21.0-32.0); CREATININE - SERUM 1.2 mg/dL (0.6-1.3); PROTEIN - SERUM 5.3 g/dL (6.4-8.2)
[2019-04-23 06:37] LABS: ANION GAP 8.8 mmol/L (8-16); POTASSIUM - SERUM 3.6 mmol/L (3.5-5.1)
--- NOTE | 2019-04-23 16:59 | MORECARE ---
CASE MANAGEMENT DISCHARGE SUMMARY PATIENT: LETICIA JAUREGUI UNIT: [id number] ADM DATE: 04/20/19 AGE: 38 : [birth year] SEX: M ROOM/BED: D.1211 AUTHOR: HUDSON,DOC PHYSICIAN: REFERRING PHYSICIAN: ERICA GARCIA MD DATE OF SERVICE: 04/23/19 Discharge Plan Patient Name: LETICIA JAUREGUI Facility: [facility]:[place] : 1980 Planned Disposition: Home Anticipated Discharge Date: 04/22/19 Discharge Date: 04/23/2019 Expected LOS: 2 Initial Reviewer: [email or web address] Initial Review Date: 04/20/2019 Generated: 04/23/19 5:59 pm Comments DCP- Discharge Planning Updated by [email or web address]: Masha Brito on 04/22/19 11:[address] Patient Name: LETICIA JAUREGUI Admission Status: ER Accout number: [id number] Admission Date: 04-20-2019 : 1980 Admission Diagnosis: Attending: ERICA GARCIA Current LOS: 2 Anticipated DC Date: 04-22-2019 Planned Disposition: Home Primary Insurance: [employer] Discharge Planning Comments: DC PLAN: Return home with parents staying w/ him. DC NEEDS: Denied dc needs. CM met with patient to complete initial dc planning assessment. CM educated patient on the CM role and verbal consent given by patient to complete assessment. CM verified patient's address, phone number, and emergency contact phone numbers. Patient lives at home alone but reports his parents are here visiting now and will stay with him at dc. At discharge patient plans to return home and feels this is a safe discharge. CM discussed availability of home health, rehab services, and medical equipment. Patient denied known discharge needs at this time. Patient reports his parents will transport him home at time of discharge. CM will continue to follow and will assist as needed with dc plans/needs. Panama Hat Smearer: Masha Brito RN, [facility] DCPIA - Discharge Planning Initial Assessment Updated by [email or web address]: Masha Brito on 04/22/19 12:09 pm * Is the patient Alert and Oriented? Yes * How many steps to enter\exit or inside your home? none * PCP Dr. Garcia * Pharmacy [facility] on [address] * Preadmission Environment Home with Family * ADLs Independent * Equipment None * List name and contact numbers for known caregivers / representatives who currently or will assist patient after discharge: Nai Jauregui [facility] - [phone] * Verbal permission to speak to the caregivers and representatives has been obtained from the patient. Yes * Community resources currently utilized None * Additional services required to return to the preadmission environment? No * Can the patient safely return to the preadmission environment? Yes * Has this patient been hospitalized within the prior 30 days at any hospital? No Last DP export: 04/22/19 11:16 a Patient Name: LETICIA JAUREGUI Page 15514 at 1656 All edits/amendments must be made on the electronic document DICTATION DATE: 04/23/191658 CRUISE STAFF MEMBER: MALLORIE 04/23/191658 RPT#: [id number] DC DATE:04/23/19 STATUS: DIS IN [facility] [address] [place] [address] END OF REPORT
== END 2019-04-23 13:38 | disposition home or self-care (01) | DRG 418 ==
LOC: D.ER 16:38 → D.M3 22:12
PROVIDERS: Family Medicine; Surgery; ADMIT Internal Medicine Nephrology; ATTEND Internal Medicine Nephrology
PROC: BF101ZZ Fluoroscopy of Bile Ducts using Low Osmolar Contrast (ICD-10-PCS; 2019-04-21)
PROC: 0FT44ZZ Resection of Gallbladder, Percutaneous Endoscopic Approach (ICD-10-PCS; principal; 2019-04-21 18:00)
DX: K81.0 Acute cholecystitis (principal); N17.9 Acute kidney failure, unspecified; K86.1 Other chronic pancreatitis; F17.213 Nicotine dependence, cigarettes, with withdrawal; E87.6 Hypokalemia; Z87.11 Personal history of peptic ulcer disease